=== PATIENT | female | born 1985 | race Caucasian/White ===

== ENCOUNTER 2020-11-18 09:47 | Inpatient (IN) | payer OTHER ==
[~2020-11-18] VITALS: Ht 167.6 cm; Wt 64.0 kg
[2020-11-18 10:46] LABS: BASOPHILS % (AUTO) 1 % (0-1); EOSINOPHILS % (AUTO) 6 % (1-7); LYMPHOCYTES % (AUTO) 13 % (22-44); MEAN CORPUSCULAR HEMOGLOBIN 29.1 pg (27.0-34.8); MEAN CORPUSCULAR HGB CONC 33.8 g/dL (32.4-35.8); MEAN PLATELET VOLUME 7.8 fL (7.4-10.4); MONOCYTES % (AUTO) 9 % (2-9); NEUTROPHILS % (AUTO) 71 % (42-75); PLATELET COUNT 312 x10^3/uL (130-400); RED BLOOD COUNT 4.79 x10^6/uL (3.82-5.3); RED CELL DISTRIBUTION WIDTH 15.3 % (9.6-15.2)
--- NOTE | 2020-11-18 10:48 | NUR ---
PT PLACED ON BP CUFF, PULSE OX. VSS. PT AMBULATORY TO BR TO PROVIDE URINE SPECIMEN. UA COLLECTED/SENT TO LAB. LABS COLLECTED. US AT BS. LAST PO THIS MORNING BUT PT THREW IT UP. CALL LIGHT WITHIN REACH, WARM BLANKET PROVIDED.
[2020-11-18 10:54] LABS: MICROSCOPIC INDICATED
[2020-11-18 10:55] LABS: ANION GAP 8 mmol/L (5-15); CALCIUM 9.2 mg/dL (8.5-10.1); CHLORIDE 110 mmol/L (98-107); CREATININE 0.69 mg/dL (0.55-1.02)
[2020-11-18 11:00] LABS: ALKALINE PHOSPHATASE 225 U/L (45-117); BILIRUBIN,TOTAL 2.7 mg/dL (0.2-1.0); TOTAL PROTEIN 8.3 g/dL (6.4-8.2)
[2020-11-18 11:03] LABS: ALANINE AMINOTRANSFERASE 1237 U/L (12-78)
[2020-11-18] MEDS ORDERED: ONDANSETRON 2MG/ML, 2ML ONE ×2 (11:51→17:14)
[2020-11-18] MEDS ORDERED: MORPHINE SULFATE 4 MG/ML, 1ML ONE (11:52)
--- NOTE | 2020-11-18 11:58 | NUR ---
PT MEDICATED PER ERP ORDER FOR 710 RUQ PAIN WITH NAUSEA. RAPID COVID COMPLETED/WALKED TO LAB. CALL LIGHT WITHIN REACH.
[2020-11-18] MEDS ORDERED: SODIUM CHLORIDE 0.9% 1,000 ML IV ONE ×2 (12:00)
[2020-11-18] MEDS ORDERED: ONDANSETRON 2MG/ML, 2ML IVPush ONE (12:00)
[2020-11-18] MEDS ORDERED: SODIUM CHLORIDE FLUSH 10ML SYR IVF PRN (12:00)
[2020-11-18] MEDS ORDERED: ONDANSETRON 2MG/ML, 2ML IVPush PRN ×3 (12:00→19:30)
[2020-11-18] MEDS ORDERED: MORPHINE SULFATE 4 MG/ML, 1ML IVPush PRN ×2 (12:00)
[2020-11-18] MEDS ORDERED: CEFOTETAN PMX 1GM/50ML 50 ML IVPB ONE (12:00)
[2020-11-18] MEDS ORDERED: SODIUM CHLORIDE FLUSH 10ML SYR IVF ONE (12:00)
--- NOTE | 2020-11-18 12:03 | NUR ---
DR MAURICIO IN TO SEE PT.
--- NOTE | 2020-11-18 12:10 | NUR ---
PT TO CT.
[2020-11-18] MEDS ORDERED: POTASSIUM CHLORIDE 20 MEQ TAB.ER.PRT PO ONE ×2 (12:30→20:30)
[2020-11-18] MEDS ORDERED: morphine SULFATE 10 MG/ML, 1ML IVPush PRN (12:30)
[2020-11-18] MEDS ORDERED: ONDANSETRON ODT 4 MG PO PRN (12:30)
[2020-11-18] MEDS ORDERED: CEFTRIAXONE 1,000 MG in DEXTROSE 5% 50 ML IV SCH (12:30)
--- NOTE | 2020-11-18 12:40 | NUR ---
Phil arciniega in [facility] - 11/18/20 at 1240 by G[facility]ALO MED REQUEST TO PHARMACY.
--- NOTE | 2020-11-18 12:41 | NUR ---
MED REQUEST SENT TO PHARMACY.
--- NOTE | 2020-11-18 13:16 | NUR ---
CEFOTETAN RECEIVED, UNABLE TO RECONSTITUTE-DEFECTIVE BAG. MED SENT BACK TO PHARMACY AND CALL TO PHARM REQUESTING ANOTHER.
--- NOTE | 2020-11-18 13:49 | NUR ---
MRI RESULT REVIEWED. ANTIBIOTIC INFUSING. PAIN TOLERABLE AT THIS TIME. CALL LIGHT WITHIN REACH.
--- NOTE | 2020-11-18 15:20 | NUR ---
REPORT TO OR. PT UNDRESSED EXCEPT GOWN, BELONGINGS TO BAG. WHO SHEET STARTED.
[2020-11-18 15:34] LABS: INTERNATIONAL NORMALIZED RATIO 0.98 (0.93-1.1); PROTHROMBIN TIME 10.5 Seconds (9.6-11.5)
[2020-11-18] MEDS ORDERED: MIDAZOLAM 1 MG/ML, 2ML ONE (15:34)
[2020-11-18] MEDS ORDERED: FENTANYL PF 100 MCG/2ML ONE (15:34)
[2020-11-18] MEDS ORDERED: SCOPOLAMINE 1MG PATCH TD ONE (16:08)
[2020-11-18] MEDS ORDERED: EPINEPHRINE 1 MG/ML, 1ML ONE (16:11)
[2020-11-18] MEDS ORDERED: BUPIVACAINE/PF 0.5% ONE (16:11)
[2020-11-18] MEDS ORDERED: OMNIPAQUE 350 MG/ML, 50 ML BOTTLE ONE (16:12)
[2020-11-18] MEDS ORDERED: PROPOFOL 50 ML ONE (16:38)
[2020-11-18] MEDS ORDERED: OMNIPAQUE 350 MG/ML, 50 ML BOTTLE IV ONE (17:07)
[2020-11-18] MEDS ORDERED: ROCURONIUM 10MG/ML,5ML ONE (17:14)
[2020-11-18] MEDS ORDERED: CEFAZOLIN 1,000 MG ONE (17:14)
[2020-11-18] MEDS ORDERED: GLYCOPYRROLATE 0.2MG/1ML, 5ML ONE (17:14)
[2020-11-18] MEDS ORDERED: NEOSTIGMINE 1 MG/ML, 10ML ONE (17:14)
[2020-11-18] MEDS ORDERED: SUCCINYLCHOLINE 20 MG/ML, 10ML ONE (17:14)
[2020-11-18] MEDS ORDERED: PROPOFOL 10 MG/ML, 20ML ONE (17:14)
[2020-11-18] MEDS ORDERED: KETOROLAC 30 MG/1 ML ONE (17:14)
[2020-11-18] MEDS ORDERED: PROMETHAZINE 25 MG/ML, 1ML IV PRN (17:30)
[2020-11-18] MEDS ORDERED: HYDROmorphone 2 MG/ML, 1ML IVPush PRN (17:30)
[2020-11-18] MEDS ORDERED: LABETALOL 5MG/ML, 20ML IV PRN (17:30)
[2020-11-18] MEDS ORDERED: DIAZEPAM 5 MG/ML, 2ML IVPush PRN (17:30)
[2020-11-18] MEDS ORDERED: ALBUTEROL SULFATE 2.5 MG/3 ML NPPB PRN (17:30)
[2020-11-18] MEDS ORDERED: OXYcodone 5 MG/5 ML ORAL.SOL UDC PO PRN (17:30)
[2020-11-18] MEDS ORDERED: MEPERIDINE/PF 25MG/0.5ML IVPush PRN (17:30)
[2020-11-18] MEDS ORDERED: ACETAMINOPHEN 325 MG TABLET PO PRN (17:30)
[2020-11-18] MEDS ORDERED: KETOROLAC 30 MG/1 ML IV PRN (17:30)
[2020-11-18] MEDS ORDERED: hydrALAzine 20 MG/ML, 1ML IV PRN (17:30)
[2020-11-18] MEDS ORDERED: FENTANYL PF 100 MCG/2ML IV PRN (17:30)
[2020-11-18] MEDS ORDERED: ACETAMINOPHEN 650 MG/20.3 ML UDC ONE (17:49)
[2020-11-18] MEDS ORDERED: OXYcodone 5 MG/5 ML ORAL.SOL UDC ONE (17:49)
[2020-11-18 18:32] VITALS: BP 129/89
[2020-11-18] MEDS ORDERED: OXYcodone/APAP 5/325MG TABLET PO PRN (19:30)
[2020-11-18 19:51] VITALS: BP 120/80
[2020-11-18] MEDS: KETOROLAC 30 MG/1 ML IV PRN (20:07)
[2020-11-18] MEDS: SODIUM CHLORIDE 0.9% 1,000 ML IV SCH (20:08)
[2020-11-18] MEDS: METRONIDAZOLE PMX 500MG/100ML 100 ML IV SCH ×2 (20:30→22:54)
[2020-11-19 00:53] VITALS: BP 97/62
[2020-11-19 04:32] VITALS: BP 94/63
[2020-11-19] MEDS: ACETAMINOPHEN 325 MG TABLET PO PRN ×2 (05:06→12:48)
[2020-11-19 05:57] LABS: BASOPHILS % (AUTO) 1 % (0-1); EOSINOPHILS % (AUTO) 0 % (1-7); LYMPHOCYTES % (AUTO) 26 % (22-44); MEAN CORPUSCULAR HGB CONC 33.6 g/dL (32.4-35.8); MEAN PLATELET VOLUME 8.5 fL (7.4-10.4); MONOCYTES % (AUTO) 8 % (2-9); NEUTROPHILS % (AUTO) 65 % (42-75); PLATELET COUNT 246 x10^3/uL (130-400); RED BLOOD COUNT 3.96 x10^6/uL (3.82-5.3); RED CELL DISTRIBUTION WIDTH 15.6 % (9.6-15.2)
[2020-11-19 06:09] LABS: CHLORIDE 111 mmol/L (98-107)
[2020-11-19 06:26] LABS: ALANINE AMINOTRANSFERASE 746 U/L (12-78); ALBUMIN 2.9 g/dL (3.4-5.0); ALKALINE PHOSPHATASE 170 U/L (45-117); ANION GAP 7 mmol/L (5-15); BILIRUBIN,TOTAL 0.7 mg/dL (0.2-1.0); CALCIUM 8.6 mg/dL (8.5-10.1); CREATININE 0.57 mg/dL (0.55-1.02); TOTAL PROTEIN 6.8 g/dL (6.4-8.2)
[2020-11-19] MEDS: METRONIDAZOLE PMX 500MG/100ML 100 ML IV SCH ×2 (06:32→15:00)
[2020-11-19 07:37] VITALS: BP 95/54
[2020-11-19] MEDS: KETOROLAC 30 MG/1 ML IV PRN (08:57)
[2020-11-19] MEDS ORDERED: ACET325T26 PO (13:26)
[2020-11-19 14:15] VITALS: BP 95/64
[2020-11-19] MEDS: SODIUM CHLORIDE 0.9% 1,000 ML IV SCH (15:00)
== END 2020-11-19 15:00 | disposition home or self-care (01) | DRG 417 ==
LOC: ED 11:52 → EDIP 14:04 → 4NE 18:21
PROVIDERS: ADMIT Internal Medicine; ATTEND Internal Medicine
PROC: BF131ZZ Fluoroscopy of Gallbladder and Bile Ducts using Low Osmolar Contrast (ICD-10-PCS; 2020-11-18)
PROC: 0FT44ZZ Resection of Gallbladder, Percutaneous Endoscopic Approach (ICD-10-PCS; principal; 2020-11-18 18:15)
DX: K80.00 Calculus of gallbladder with acute cholecystitis without obstruction (principal); K85.10 Biliary acute pancreatitis without necrosis or infection; I10 Essential (primary) hypertension; Z20.822 Contact with and (suspected) exposure to COVID-19; R74.01 Elevation of levels of liver transaminase levels; Z90.89 Acquired absence of other organs; Z79.899 Other long term (current) drug therapy
CPT/HCPCS: 36415; 74300; 96361; 96365; 96375; 99285; S0020; 74181; 76700; 80053; 81001; 83690; 84703; 85025; 85610; 87635; 88304; G0378; J0171; J0690; J0696; J1885; J2250; J2405; J2704; J2710; J3010; Q9967; J0330; J2270; J7030